=== PATIENT | female | born 1960 | race Caucasian/White ===

== ENCOUNTER → 2018-07-08 | Outpatient (CLI) | payer OTHER | END | disposition home or self-care (01) | LOC: CFH 14:24 | PROVIDERS: ATTEND Obstetrics & Gynecology | DX: Z12.31 Encounter for screening mammogram for malignant neoplasm of breast (principal); M85.88 Other specified disorders of bone density and structure, other site | CPT/HCPCS: 77080; 77067 ==

== ENCOUNTER 2020-12-01 20:00 | Emergency (ER) | payer OTHER ==
[~2020-12-01] VITALS: Ht 167.6 cm; Wt 69.1 kg
[2020-12-01] MEDS ORDERED: ACETAMINOPHEN 500 MG TABLET ONE (20:29)
[2020-12-01] MEDS ORDERED: ACETAMINOPHEN 500 MG TABLET PO ONE (20:30)
[2020-12-01 21:38] LABS: BASOPHILS % (AUTO) 0 % (0-1); EOSINOPHILS % (AUTO) 0 % (1-7); LYMPHOCYTES % (AUTO) 11 % (22-44); MEAN CORPUSCULAR HEMOGLOBIN 31.9 pg (27.0-34.8); MEAN CORPUSCULAR HGB CONC 33.8 g/dL (32.4-35.8); MEAN PLATELET VOLUME 7.9 fL (7.4-10.4); MONOCYTES % (AUTO) 13 % (2-9); NEUTROPHILS % (AUTO) 76 % (42-75); PLATELET COUNT 188 x10^3/uL (130-400); RED CELL DISTRIBUTION WIDTH 14.2 % (9.6-15.2)
[2020-12-01 21:48] VITALS: BP 112/49
[2020-12-01 21:49] LABS: ALANINE AMINOTRANSFERASE 20 U/L (12-78); ALBUMIN 2.8 g/dL (3.4-5.0); ANION GAP 8 mmol/L (5-15); CALCIUM 8.3 mg/dL (8.5-10.1); CHLORIDE 100 mmol/L (98-107); CREATININE 0.77 mg/dL (0.55-1.02)
[2020-12-01 21:52] LABS: ALKALINE PHOSPHATASE 76 U/L (45-117); BILIRUBIN,TOTAL 0.2 mg/dL (0.2-1.0)
[2020-12-01] MEDS ORDERED: DEXAMETHASONE 4 MG TABLET ONE (22:32)
[2020-12-01 22:33] LABS: TROPONIN I < 0.015 ng/mL (0.000-0.045)
[2020-12-01] MEDS ORDERED: DEXAMETHASONE 4 MG TABLET PO ONE (23:00)
== END 2020-12-01 22:49 | disposition home or self-care (01) ==
LOC: ED 20:30
DX: U07.1 COVID-19 (principal); J12.82 Pneumonia due to coronavirus disease 2019; R50.9 Fever, unspecified
CPT/HCPCS: 36415; 71045; 80053; 84484; 85025; 93005; 99285

== ENCOUNTER 2020-12-05 09:35 | Inpatient (IN) | payer OTHER ==
[~2020-12-05] VITALS: Ht 172.7 cm; Wt 63.0 kg
--- NOTE | 2020-12-05 09:59 | NUR ---
PT. TO ED WITH C/O SOB/SP/SCOTT/COUGH. PT. KNOWN COVID +. PT. STATES SYMPTOMS WORSE THIS AM AND HOME SPO2 MONITOR WAS READING 87%. PT. HAD EKG DONE IN TRIAGE. UPON ARRIVAL TO ROOM SPO2, CARDIAC, AND B/P MONITORS PLACED. NSR NOTED. SPO2 >93%. FREQUENT DRY COUGH. CALL LIGHT IN REACH. ALL SAFETY MEASURES OBSERVED. AWIATING PROVIDER LUCILA.
--- NOTE | 2020-12-05 10:28 | NUR ---
DR. JORDAN AT BS TO EVAL PT. AND DISCUSS POC.
[2020-12-05] MEDS ORDERED: SODIUM CHLORIDE 0.9% 1,000ML IVBOLUS ONE (10:30)
[2020-12-05] MEDS ORDERED: SODIUM CHLORIDE FLUSH 10ML SYR IVF ONE (10:30)
[2020-12-05] MEDS ORDERED: DEXAMETHASONE 4 MG/ML, 1ML IVPush ONE (10:30)
[2020-12-05] MEDS ORDERED: DEXAMETHASONE 4 MG/ML, 1ML ONE (10:34)
--- NOTE | 2020-12-05 10:47 | NUR ---
IV ESTABLISHED, IVF INFUSING PER ORDER, MEDICATED PER MAR. LABS DRAWN TO INCLUDE 2 SETS OF BLOOD CULTURES. X-RAY TO BS. ALL MONITORS REMAIN IN PLACE. ALL SAFETY MEASURES OBSERVED. PT. CONTINUES WITH RAPID/NON-LABORED RESPIRATIONS. FREQUENT DRY COUGH. SPO2>92%.
[2020-12-05 10:55] LABS: BASOPHILS % (AUTO) 0 % (0-1); EOSINOPHILS % (AUTO) 0 % (1-7); LYMPHOCYTES % (AUTO) 6 % (22-44); MEAN CORPUSCULAR HEMOGLOBIN 32.6 pg (27.0-34.8); MEAN CORPUSCULAR HGB CONC 34.7 g/dL (32.4-35.8); MEAN PLATELET VOLUME 7.4 fL (7.4-10.4); MONOCYTES % (AUTO) 8 % (2-9); NEUTROPHILS % (AUTO) 86 % (42-75); PLATELET COUNT 191 x10^3/uL (130-400); RED BLOOD COUNT 3.76 x10^6/uL (3.82-5.3); RED CELL DISTRIBUTION WIDTH 13.7 % (9.6-15.2)
[2020-12-05 11:08] LABS: ALANINE AMINOTRANSFERASE 16 U/L (12-78); ALBUMIN 2.5 g/dL (3.4-5.0); ANION GAP 9 mmol/L (5-15); CALCIUM 8.4 mg/dL (8.5-10.1); CHLORIDE 97 mmol/L (98-107); CREATININE 0.61 mg/dL (0.55-1.02)
[2020-12-05 11:12] LABS: ALKALINE PHOSPHATASE 71 U/L (45-117); BILIRUBIN,TOTAL 0.5 mg/dL (0.2-1.0); TOTAL PROTEIN 6.5 g/dL (6.4-8.2); TROPONIN I < 0.015 ng/mL (0.000-0.045)
--- NOTE | 2020-12-05 11:39 | NUR ---
IVF COMPLETED. B/P IMPROVED. VSS. AWAITING PROVIDER RECHECK.
[2020-12-05] MEDS ORDERED: CEFTRIAXONE 1,000 MG in DEXTROSE 5% 50 ML IVPB ONE (12:30)
--- NOTE | 2020-12-05 13:58 | NUR ---
PT. PROVIDED WITH MEAL TRAY PER REQUEST. AWAITNG BED PLACEMENT UPSTAIRS.
[2020-12-05] MEDS ORDERED: ONDANSETRON 2MG/ML, 2ML IVPush PRN (14:30)
[2020-12-05] MEDS ORDERED: HYDROcodone/APAP 5/325 TABLET PO PRN (14:30)
[2020-12-05] MEDS ORDERED: ENALAPRILAT 1.25 MG/ML, 2ML IVPush PRN (14:30)
--- NOTE | 2020-12-05 14:43 | NUR ---
PT. UP TO BR. O2 SAT DROPPED TO 87% AFTER. PT. RECOVERED BACK UP TO 93% WITHIN 1 MINUTE. STILL AWAITING BED PLACEMENT UPSTAIRS.
--- NOTE | 2020-12-05 14:44 | NUR ---
PT. ATE ALL OF MEAL TRAY PROVIDED.
--- NOTE | 2020-12-05 15:00 | NUR ---
Report received from Fior VELASCO, assuming care of pt at this time
[2020-12-05] MEDS ORDERED: ACETAMINOPHEN 325 MG TABLET ONE (15:06)
[2020-12-05] MEDS: ACETAMINOPHEN 325 MG TABLET PO PRN (15:08)
--- NOTE | 2020-12-05 16:37 | NUR ---
pt resting in bed, vss, nadn. awaiting admit at this time
[2020-12-05] MEDS: ASCORBIC ACID 500 MG TABLET PO SCH ×2 (17:00→17:51)
[2020-12-05] MEDS: ZINC SULFATE 220 MG CAPSULE PO SCH (17:51)
[2020-12-05] MEDS: DOXYCYCLINE 100MG TABLET PO SCH ×2 (17:51→20:01)
[2020-12-05] MEDS: CHOLECALCIFEROL 5,000u TAB PO SCH (17:51)
[2020-12-05] MEDS: THIAMINE 100MG TABLET PO SCH (17:51)
[2020-12-05] MEDS: ENOXAPARIN 40 MG/0.4 ML SQ SCH (17:52)
[2020-12-05 20:23] VITALS: BP 92/53
[2020-12-05] MEDS: GUAIFENESIN/DM 200-20MG, 10ML UDC PO PRN (21:05)
[2020-12-06 01:59] VITALS: BP 95/55
[2020-12-06] MEDS: GUAIFENESIN/DM 200-20MG, 10ML UDC PO PRN (05:29)
[2020-12-06] MEDS: CEFTRIAXONE 2 GM in DEXTROSE 5% 50 ML IVPB SCH (05:29)
[2020-12-06 06:32] LABS: BASOPHILS % (AUTO) 0 % (0-1); EOSINOPHILS % (AUTO) 0 % (1-7); LYMPHOCYTES % (AUTO) 5 % (22-44); MEAN CORPUSCULAR HEMOGLOBIN 32.5 pg (27.0-34.8); MEAN CORPUSCULAR HGB CONC 34.5 g/dL (32.4-35.8); MEAN PLATELET VOLUME 7.8 fL (7.4-10.4); MONOCYTES % (AUTO) 8 % (2-9); NEUTROPHILS % (AUTO) 88 % (42-75); PLATELET COUNT 221 x10^3/uL (130-400); RED BLOOD COUNT 3.84 x10^6/uL (3.82-5.3); RED CELL DISTRIBUTION WIDTH 13.4 % (9.6-15.2)
[2020-12-06 06:39] LABS: ALANINE AMINOTRANSFERASE 16 U/L (12-78); ALBUMIN 2.2 g/dL (3.4-5.0); ANION GAP 7 mmol/L (5-15); CALCIUM 8.4 mg/dL (8.5-10.1); CHLORIDE 104 mmol/L (98-107); CREATININE 0.51 mg/dL (0.55-1.02)
[2020-12-06 06:41] LABS: ALKALINE PHOSPHATASE 68 U/L (45-117); BILIRUBIN,TOTAL 0.3 mg/dL (0.2-1.0); TOTAL PROTEIN 6.6 g/dL (6.4-8.2)
[2020-12-06] MEDS: ZINC SULFATE 220 MG CAPSULE PO SCH (07:40)
[2020-12-06] MEDS: CHOLECALCIFEROL 5,000u TAB PO SCH (07:40)
[2020-12-06] MEDS: ASCORBIC ACID 500 MG TABLET PO SCH ×2 (07:40→16:00)
[2020-12-06] MEDS: THIAMINE 100MG TABLET PO SCH (07:40)
[2020-12-06] MEDS: DOXYCYCLINE 100MG TABLET PO SCH ×2 (07:40→20:08)
[2020-12-06 07:44] VITALS: BP 111/70
[2020-12-06 09:15] LABS: HCT (SEDRATE) 37.1 % (34.6-47.8)
[2020-12-06] MEDS ORDERED: DEXAMETHASONE 4 MG/ML, 1ML ONE (09:18)
[2020-12-06] MEDS: DEXAMETHASONE 4 MG/ML, 1ML IVPush SCH (09:22)
[2020-12-06 09:55] LABS: D-DIMER 0.85 ug/mlFEU (0.00-0.52)
[2020-12-06] MEDS ORDERED: DIPHENHYDRAMINE 50 MG CAPSULE PO PRN (10:00)
[2020-12-06] MEDS: BENZONATATE 100 MG CAPSULE PO SCH ×3 (10:12→20:08)
[2020-12-06 12:12] VITALS: BP 108/66
[2020-12-06] MEDS: ENOXAPARIN 40 MG/0.4 ML SQ SCH (16:01)
[2020-12-06] MEDS: ALBUTEROL HFA 90 MCG/SPRAY INH PRN (17:53)
[2020-12-06 19:16] VITALS: BP 98/61
[2020-12-06] MEDS ORDERED: OMNIPAQUE 350 MG/ML, 100ML BOTTLE ONE (19:18)
[2020-12-06] MEDS: ACETAMINOPHEN 325 MG TABLET PO PRN (20:08)
[2020-12-06] MEDS ORDERED: MAGNESIUM OXIDE 400 MG TABLET PO SCH (21:00)
[2020-12-07 00:41] VITALS: BP 104/66
[2020-12-07] MEDS: CEFTRIAXONE 2 GM in DEXTROSE 5% 50 ML IVPB SCH (05:35)
[2020-12-07 06:07] LABS: BASOPHILS % (AUTO) 0 % (0-1); EOSINOPHILS % (AUTO) 0 % (1-7); LYMPHOCYTES % (AUTO) 6 % (22-44); MEAN CORPUSCULAR HEMOGLOBIN 32.4 pg (27.0-34.8); MEAN CORPUSCULAR HGB CONC 34.6 g/dL (32.4-35.8); MEAN PLATELET VOLUME 7.8 fL (7.4-10.4); MONOCYTES % (AUTO) 11 % (2-9); NEUTROPHILS % (AUTO) 83 % (42-75); PLATELET COUNT 266 x10^3/uL (130-400); RED BLOOD COUNT 3.78 x10^6/uL (3.82-5.3); RED CELL DISTRIBUTION WIDTH 13.8 % (9.6-15.2)
[2020-12-07 06:14] LABS: ALBUMIN 2.2 g/dL (3.4-5.0); ANION GAP 7 mmol/L (5-15); CALCIUM 8.5 mg/dL (8.5-10.1); CHLORIDE 107 mmol/L (98-107)
[2020-12-07 06:15] LABS: D-DIMER 0.75 ug/mlFEU (0.00-0.52)
[2020-12-07 06:22] LABS: ALANINE AMINOTRANSFERASE 17 U/L (12-78); ALKALINE PHOSPHATASE 66 U/L (45-117); BILIRUBIN,TOTAL 0.4 mg/dL (0.2-1.0); CREATININE 0.54 mg/dL (0.55-1.02); TOTAL PROTEIN 6.5 g/dL (6.4-8.2)
[2020-12-07 08:43] VITALS: BP 118/74
[2020-12-07] MEDS: CHOLECALCIFEROL 5,000u TAB PO SCH (09:32)
[2020-12-07] MEDS: DOXYCYCLINE 100MG TABLET PO SCH (09:32)
[2020-12-07] MEDS: ZINC SULFATE 220 MG CAPSULE PO SCH (09:32)
[2020-12-07] MEDS: ALBUTEROL HFA 90 MCG/SPRAY INH PRN (09:32)
[2020-12-07] MEDS: BENZONATATE 100 MG CAPSULE PO SCH (09:32)
[2020-12-07] MEDS: ASCORBIC ACID 500 MG TABLET PO SCH (09:32)
[2020-12-07] MEDS: THIAMINE 100MG TABLET PO SCH (09:32)
[2020-12-07] MEDS: DEXAMETHASONE 4 MG/ML, 1ML IVPush SCH (09:32)
[2020-12-07] MEDS ORDERED: DOXY100T PO (10:46)
[2020-12-07] MEDS ORDERED: PRED20TA PO (10:46)
[2020-12-07] MEDS ORDERED: CEFD300C37 PO (10:46)
== END 2020-12-07 14:33 | disposition home or self-care (01) | DRG 177 ==
LOC: ED 10:02 → EDIP 13:09 → 4EST 17:30
PROVIDERS: ADMIT Internal Medicine; ATTEND Hospitalist
DX: U07.1 COVID-19 (principal); J12.82 Pneumonia due to coronavirus disease 2019; R09.02 Hypoxemia; R79.89 Other specified abnormal findings of blood chemistry
CPT/HCPCS: 36415; 71045; 71275; 80053; 82728; 83605; 83615; 83735; 83880; 84100; 84145; 84484; 85025; 85379; 85384; 85651; 86140; 87040; 93005; 96361; 96365; 96375; G0378; J0696; J1100; J1650; Q9967; J7030

== ENCOUNTER 2020-12-14 09:29 | Outpatient (CLI) | payer OTHER ==
[~2020-12-14 09:29] MED LIST: CEFD300C37 PO; DOXY100T PO; PRED20TA PO
== END 2020-12-14 23:59 | disposition home or self-care (01) ==
LOC: CFH 09:29
PROVIDERS: ATTEND Obstetrics & Gynecology
DX: Z12.31 Encounter for screening mammogram for malignant neoplasm of breast (principal); M85.89 Other specified disorders of bone density and structure, multiple sites
CPT/HCPCS: 77063; 77067; 77080